=== PATIENT | male | born 1955 | race Caucasian/White ===

== ENCOUNTER 2021-01-10 09:52 | Emergency (ER) | payer OTHER, MEDICARE ==
[2021-01-10 10:10] VITALS: BP 154/79; PULSE 109
--- NOTE | 2021-01-10 10:24 | EDM.PDOC ---
ED HPI GENERAL MEDICAL PROBLEM - General Chief Complaint: Respiratory Problem Time Seen by Provider: 01/10/21 10:07 Source of Information: Reports: Patient, EMS History Limitations: Reports: No Limitations - History of Present Illness INITIAL COMMENTS - FREE TEXT/NARRATIVE: This 65 yo male patient was brought to the ED by [facility] due to increased shortness of breath and difficulties breathing. The patient reports his symptoms got worse last night at about 1900 and has continued to get worse throughout the night. EMS reports the patient was on 5 liters of oxygen while at home upon their arrival. The patient reports he is supposed to be on 4 lpm, but increased his oxygen due to increased symptoms. The patient took 2 Prednisone pills and a Lorazepam prior to EMS arrival. The patient reports he has noticed increased sinus drainage and a productive cough. The patient reports he has been spitting up clear fluids. The patient reports his symptoms started last night after he started to choke on one of his medications. 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 ) - Related Data Allergies Allergy/AdvReac Type Severity Reaction Status Date / Time Milk Containing Products Allergy Unknown Abdominal Verified 01/10/21 09:57 Cramps cats Allergy Unknown Edema Uncoded 01/10/21 09:57 hay fever Allergy Unknown Edema Uncoded 01/10/21 09:57 Home Meds: Home Meds Albuterol Sulfate HFA 2 puff INH QID PRN 01/13/14 [History] Amoxicillin/Clavulanate K 1 tab PO ASDIRECTED PRN 01/13/14 [History] Ascorbic Acid 500 mg PO DAILY 01/13/14 [History] Cetirizine HCl [All Day Allergy] 1 tab PO DAILY PRN 01/13/14 [History] Finasteride [Proscar] 1 tab PO DAILY 01/13/14 [History] Naphazoline HCl/Pheniramine 2 drop EYEBOTH TID PRN 01/13/14 [History] Olopatadine HCl 1 drop EYEBOTH DAILY 01/13/14 [History] Oxybutynin Chloride 1 tab PO TID PRN 01/13/14 [History] Polyethylene Glycol 3350 1 tsp PO DAILY PRN 01/13/14 [History] Sildenafil Citrate 100 mg PO ASDIRECTED PRN 01/13/14 [History] Simvastatin [Zocor] 0.5 tab PO BEDTIME 01/13/14 [History] Terazosin HCl [Terazosin] 1 cap PO BEDTIME 01/13/14 [History] Tiotropium 1 cap INH QAM 01/13/14 [History] Trospium Chloride 1 tab PO BID 01/13/14 [History] hydrOXYzine HCL [hydrOXYzine] 1 tab PO TID PRN 01/13/14 [History] Calcium Carbonate/Vitamin D3 [Calcium 250+D] 1 tab PO BID 01/17/15 [History] Cholecalciferol (Vitamin D3) [Vitamin D3] 1,000 units PO DAILY 01/17/15 [History] Multivitamin with Minerals [Multiple Vitamin] 1 tab PO DAILY 01/17/15 [History] bisacodyL [Dulcolax] 2 tab PO ASDIRECTED PRN 01/17/15 [History] guaiFENesin [Guaifenesin ER] 1 tab PO DAILY 01/17/15 [History] predniSONE [Prednisone] 5 mg PO DAILY 01/17/15 [History] predniSONE [Prednisone] 20 mg PO ASDIRECTED PRN 01/17/15 [History] Budesonide/Formoterol [Symbicort 160-4.5 MCG] 2 puff INH BID 02/26/15 [History] Hydrocortisone [Hydrocortisone 1% Crm] 1 applic TOP ASDIRECTED PRN 02/26/15 [History] Loratadine 10 mg PO DAILY 02/26/15 [History] Omeprazole 20 mg PO BID 02/26/15 [History] traMADol HCl [Ultram] 1 tab PO ASDIRECTED PRN 02/26/15 [History] Past Medical History HEENT History: Reports: Impaired Vision, Other (See Below) Other HEENT History: blind left eye. Respiratory History: Reports: COPD, Other (See Below) Other Respiratory History: enphazema Gastrointestinal History: Reports: GERD, Hemorrhoids Genitourinary History: Reports: Prostate Disorder Musculoskeletal History: Reports: Back Pain, Chronic, Fracture, Other (See Below) Other Musculoskeletal History: compression fr. 2 rods and 6 screws. Psychiatric History: Reports: Anxiety - Infectious Disease History Infectious Disease History: Reports: Chicken Pox, Influenza, Measles, Mumps - Past Surgical History Respiratory Surgical History: Reports: Other (See Below) Social & Family History - Living Situation & Occupation Living situation: Reports: with Family Occupation: Disabled ED ROS GENERAL - Review of Systems Review Of Systems: Comprehensive ROS is negative, except as noted in HPI. ED EXAM, GENERAL - Physical Exam Exam: See Below Exam Limited By: No Limitations General Appearance: Alert, WD/WN, Anxious, Moderate Distress Eye Exam: Bilateral Eye: EOMI, Normal Inspection, PERRL Ears: Normal External Exam, Normal Canal, Hearing Grossly Normal, Normal TMs Nose: Normal Inspection, Normal Mucosa, No Blood Throat/Mouth: Normal Inspection, Normal Lips, Normal Teeth, Normal Gums, Normal Oropharynx, Normal Voice, No Airway Compromise Head: Atraumatic, Normocephalic Neck: Normal Inspection, Supple, Non-Tender, Full Range of Motion Respiratory/Chest: No Respiratory Distress, Lungs Clear, Normal Breath Sounds, No Accessory Muscle Use, Chest Non-Tender Cardiovascular: Tachycardia GI/Abdominal: Normal Bowel Sounds, Soft, Non-Tender, No Organomegaly, No Distention, No Abnormal Bruit, No Mass (Male) Exam: Deferred Rectal (Males) Exam: Deferred Back Exam: Normal Inspection, Full Range of Motion, NT Extremities: Other (generalized tremmors) Neurological: Alert, Oriented, CN II-XII Intact, Normal Cognition Psychiatric: Anxious Skin Exam: Warm, Dry, Intact, Normal Color, No Rash Lymphatic: No Adenopathy #1 Interpretation EKG Date: 01/10/21 Time: 11:53 Rhythm: NSR Rate (Beats/Min): 99 [place]: Normal P-Wave: Present QRS: Normal ST-T: Normal QT: Normal Comparison: No Change Course - Vital Signs Last Recorded V/S: Last Vital Signs Temp 35.9 C L 01/10/21 09:57 Pulse 109 H 01/10/21 09:57 Resp 22 H 01/10/21 09:57 BP 154/79 H 01/10/21 09:57 Pulse Ox 95 01/10/21 09:57 - Orders/Labs/Meds Orders: Active Orders 24 hr Category Date Time Status EKG Documentation Completion [RC] STAT Care 01/10/21 09:53 Active CULTURE BLOOD [BC] Stat Lab 01/10/21 09:53 Ordered Labs: Laboratory Tests 01/10/21 01/10/21 01/10/21 Range/Units 10:09 10:09 10:09 WBC 7.4 (5.0-10.0) 10^3/uL RBC 4.78 (4.6-6.2) 10^6/uL Hgb 14.5 (14.0-18.0) g/dL Hct 44.3 (40.0-54.0) % MCV 92.7 (80-100) fL MCH 30.3 (27.0-34.0) pg MCHC 32.7 L (33.0-35.0) g/dL Plt Count 168 D (150-450) 10^3/uL Neut % (Auto) 83.5 H (42.2-75.2) % Lymph % (Auto) 7.3 L (20.5-50.1) % [place] % (Auto) 7.3 (2-8) % Eos % (Auto) 1.8 (1.0-3.0) % Baso % (Auto) 0.1 (0.0-1.0) % D-Dimer, Quantitative (0-400) ng/mL Sodium 139 (136-145) mmol/L Potassium 4.3 (3.5-5.1) mmol/L Chloride 100 (98-107) mmol/L Carbon Dioxide 33 H (21-32) mmol/L Anion Gap 10.3 (7-13) mEq/L BUN 17 (7-18) mg/dL Creatinine 0.86 (0.70-1.30) mg/dL Est Cr Clr Drug Dosing 94.20 mL/min Estimated GFR (MDRD) > 60 BUN/Creatinine Ratio 19.8 (No establ ref range) Glucose 129 H (70-99) mg/dL Lactic Acid 1.0 (0.4-2.0) mmol/L Calcium 9.6 (8.5-10.1) mg/dL Total Bilirubin 0.5 (0.2-1.0) mg/dL AST 23 (15-37) U/L ALT 31 (16-63) U/L Alkaline Phosphatase 73 (46-116) U/L Troponin I < 0.017 (0.000-0.056) ng/mL B-Natriuretic Peptide 7 (0-100) pg/ml Total Protein 8.2 (6.4-8.2) g/dL Albumin 3.9 (3.4-5.0) g/dL Globulin 4.3 Albumin/Globulin Ratio 0.9 / Range/Units 10:09 WBC (5.0-10.0) 10^3/uL RBC (4.6-6.2) 10^6/uL Hgb (14.0-18.0) g/dL Hct (40.0-54.0) % MCV (80-100) fL MCH (27.0-34.0) pg MCHC (33.0-35.0) g/dL Plt Count (150-450) 10^3/uL Neut % (Auto) (42.2-75.2) % Lymph % (Auto) (20.5-50.1) % [place] % (Auto) (2-8) % Eos % (Auto) (1.0-3.0) % Baso % (Auto) (0.0-1.0) % D-Dimer, Quantitative 627 H (0-400) ng/mL Sodium (136-145) mmol/L Potassium (3.5-5.1) mmol/L Chloride (98-107) mmol/L Carbon Dioxide (21-32) mmol/L Anion Gap (7-13) mEq/L BUN (7-18) mg/dL Creatinine (0.70-1.30) mg/dL Est Cr Clr Drug Dosing mL/min Estimated GFR (MDRD) BUN/Creatinine Ratio (No establ ref range) Glucose (70-99) mg/dL Lactic Acid (0.4-2.0) mmol/L Calcium (8.5-10.1) mg/dL Total Bilirubin (0.2-1.0) mg/dL AST (15-37) U/L ALT (16-63) U/L Alkaline Phosphatase (46-116) U/L Troponin I (0.000-0.056) ng/mL B-Natriuretic Peptide (0-100) pg/ml Total Protein (6.4-8.2) g/dL Albumin (3.4-5.0) g/dL Globulin Albumin/Globulin Ratio Meds: Medications Discontinued Medications Generic Name Dose Route Start Last Admin Trade Name Jaret PRN Reason Stop Dose Admin Ceftriaxone Sodium 1 gm/ 50 mls @ 100 mls/hr 01/10/21 11:10 01/10/21 11:51 Sodium Chloride IV 01/10/21 11:39 Infused ONETIME ONE Infusion Methylprednisolone Sodium Succinate 125 mg 01/10/21 11:10 01/10/21 11:18 Methylprednisolone Sodium Succinate 125 Mg/2 Ml Sdv IVPUSH 01/10/21 11:11 125 mg ONETIME ONE Administration Departure - Departure Time of Disposition: 11:58 Disposition: Home, Self-Care 01 Condition: Fair Clinical Impression: Acute exacerbation of chronic obstructive airways disease - Discharge Information *PRESCRIPTION DRUG MONITORING PROGRAM REVIEWED*: Not Applicable *COPY OF PRESCRIPTION DRUG MONITORING REPORT IN PATIENT [place]: Not Applicable Instructions: Chronic Obstructive Pulmonary Disease Exacerbation, [id number] Forms: ED Department Discharge Care Plan Goals: The patient and his daughter were advised of the examination, lab results and x- ray results during the visit. The patient was given an IV dose of Solumedrol and Rocephin while in the ED. The patient was discharged with a script for Prednisone (20 mg) #10 to take 2 by mouth daily for 5 days and Augmentin (500/125) #20 to take 1 by mouth 2 times per day for 10 days. The patient was encouraged to continue to monitor his symptoms. If the patient has any additional symptoms or concerns, the patient should either return to the emergency department or visit his primary care facility. Sepsis Event Note (ED) - Focused Exam Vital Signs: Vital Signs Temp Pulse Resp BP Pulse Ox 01/10/21 09:57 35.9 C L 109 H 22 H 154/79 H 95 - My Orders Last 24 Hours: My Active Orders 01/10/21 09:53 EKG Documentation Completion [RC] STAT CULTURE BLOOD [BC] Stat - Assessment/Plan Last 24 Hours: My Active Orders 01/10/21 09:53 EKG Documentation Completion [RC] STAT CULTURE BLOOD [BC] Stat
[2021-01-10 10:42] LABS: ANION GAP 10.3 mEq/L (7-13); CHLORIDE,CL 100 mmol/L (98-107); SODIUM,NA 139 mmol/L (136-145)
--- NOTE | 2021-01-10 11:00 | CR ---
EXAMINATION: Chest 1V Frontal SEX: Male AGE: 65 years CLINICAL HISTORY: 65-year-old male with history "COPD" and now short of breath. Comparison exam 31 August 2015. INTERPRETATION: No acute new evidence cardiovascular decompensation, lung mass or focal lobar consolidation (compared to August 2015). 1. Normal cardiac silhouette. Bilateral prominence of proximal pulmonary artery segments. No vascular congestion, cephalization of flow, alveolar edema or dependent new pleural fluid accumulation. 2. Generalized air trapping and chronic shaggy bronchitic pattern (interstitial fibrosis). 3. No new lung mass or hilar lymphadenopathy. 4. No atelectasis/infiltrate. No peripheral "groundglass" interstitial lung densities. 5. No pneumothorax or pneumomediastinum. CONCLUSION:
[2021-01-10] MEDS ORDERED: cefTRIAXone 1 GM in Sodium Chloride 0.9% 50 ML IV ONE (11:10)
[2021-01-10] MEDS ORDERED: methylPREDNISolone Sodium Succinate 125 MG/2 ML SDV IVPUSH ONE (11:10)
== END 2021-01-10 12:07 | disposition home or self-care (01) ==
LOC: DL.ED 09:52
DX: J44.1 Chronic obstructive pulmonary disease with (acute) exacerbation (principal); K21.9 Gastro-esophageal reflux disease without esophagitis; N42.9 Disorder of prostate, unspecified; Z91.011 Allergy to milk products; Z91.048 Other nonmedicinal substance allergy status; Z79.899 Other long term (current) drug therapy
CPT/HCPCS: 36415; 71045; 80053; 83605; 83880; 84484; 85025; 85379; 87040; 93005; 93010; 96365; 96375; 99284; 99285-25; J0696; J2930

== ENCOUNTER 2022-12-24 15:33 | Emergency (ER) | payer OTHER, MEDICARE ==
[2022-12-24 16:13] VITALS: BP 143/63; PULSE 106
== END 2022-12-24 16:32 ==
LOC: DL.ED 15:33
DX: T18.128A Food in esophagus causing other injury, initial encounter (principal); K21.9 Gastro-esophageal reflux disease without esophagitis; J43.9 Emphysema, unspecified; Z79.899 Other long term (current) drug therapy; Z91.011 Allergy to milk products; Z91.048 Other nonmedicinal substance allergy status
CPT/HCPCS: 99284; 99285

== ENCOUNTER 2023-05-07 20:01 | Emergency (ER) | payer MEDICARE, OTHER ==
[2023-05-07 20:30] VITALS: BP 134/68; PULSE 82
[2023-05-07 22:15] LABS: BASOPHILS PERCENT AUTO 0.2 % (0.0-1.0); EOSINOPHILS PERCENT AUTO 3.5 % (1.0-3.0); HEMATOCRIT 41.1 % (40.0-54.0); HEMOGLOBIN 13.2 g/dL (14.0-18.0); LYMPHOCYTES PERCENT AUTO 15.2 % (20.5-50.1); MEAN CORPUSCULAR HEMOGLOBIN 31.6 pg (27.0-34.0); MEAN CORPUSCULAR HGB CONC 32.1 g/dL (33.0-35.0); MEAN CORPUSCULAR VOLUME 98.3 fL (80-100); MONOCYTES PERCENT AUTO 9.4 % (2-8); NEUTROPHILS PERCENT AUTO 71.7 % (42.2-75.2); PLATELET COUNT,PLT 165 10^3/uL (150-450); RED BLOOD CELL COUNT 4.18 10^6/uL (4.6-6.2); WHITE BLOOD CELL COUNT,WBC 5.4 10^3/uL (5.0-10.0)
[2023-05-07 22:33] LABS: B-TYPE NATRIURETIC PEPTIDE,BNP 45 pg/ml (0-100)
[2023-05-07 22:34] LABS: INR 0.9 (0.9-1.2); PROTHROMBIN TIME 9.7 SEC (9.0-12.0); PTT,PARTIAL THROMBOPLSTIN TIME 25.2 SEC (22.0-34.0)
[2023-05-07 22:37] LABS: ALANINE AMINOTRANSFERASE,ALT 29 U/L (16-63); ALBUMIN 4.1 g/dL (3.4-5.0); ALKALINE PHOSPHATASE 70 U/L (46-116); AMYLASE 67 U/L (25-115); ANION GAP 9.6 mEq/L (7-13); ASPARTATE AMNIOTRANSFERASE,AST 25 U/L (15-37); BILIRUBIN TOTAL 0.4 mg/dL (0.2-1.0); BLOOD UREA NITROGEN,BUN 21 mg/dL (7-18); BUN/CREATININE RATIO 33.9 (No establ ref range); CALCIUM 9.7 mg/dL (8.5-10.1); CARBON DIOXIDE,CO2 38 mmol/L (21-32); CHLORIDE,CL 98 mmol/L (98-107); CREATININE 0.62 mg/dL (0.70-1.30); EST CRCL DRUG DOSING (CG) 104.32 mL/min; GLUCOSE RANDOM 91 mg/dL (70-99); LIPASE 55 U/L (73-393); MAGNESIUM 1.8 mg/dL (1.8-2.4); POTASSIUM,K 4.6 mmol/L (3.5-5.1); PROTEIN TOTAL,TP 8.1 g/dL (6.4-8.2); SODIUM,NA 141 mmol/L (136-145)
[2023-05-07 22:39] LABS: C-REACTIVE PROTEIN < 0.2 mg/dL (0.0-0.9); ESTIMATED GFR 103 mL/min (>=60)
[2023-05-07 22:40] LABS: LACTIC ACID 0.6 mmol/L (0.4-2.0)
[2023-05-07] MEDS ORDERED: Take Home: traMADol 50 MG, 4 Tab Pack PO ONE (22:46)
== END 2023-05-07 23:15 | disposition home or self-care (01) ==
LOC: DL.ED 20:01
DX: J44.9 Chronic obstructive pulmonary disease, unspecified (principal); R07.81 Pleurodynia; E78.00 Pure hypercholesterolemia, unspecified; K21.9 Gastro-esophageal reflux disease without esophagitis; Z87.891 Personal history of nicotine dependence; Z91.048 Other nonmedicinal substance allergy status; Z91.011 Allergy to milk products
CPT/HCPCS: 36415; 71101; 80053; 82150; 83605; 83690; 83735; 83880; 84145; 85025; 85610; 85730; 86140; 99283; 99284; A9270

== ENCOUNTER 2023-05-30 13:23 | Emergency (ER) | payer OTHER ==
[2023-05-30] MEDS ORDERED: Sodium Chloride 0.9% 10 ML Syringe FLUSH PRN (13:39)
[2023-05-30 13:55] LABS: BASOPHILS PERCENT AUTO 0.2 % (0.0-1.0); EOSINOPHILS PERCENT AUTO 1.4 % (1.0-3.0); HEMATOCRIT 38.8 % (40.0-54.0); HEMOGLOBIN 12.7 g/dL (14.0-18.0); LYMPHOCYTES PERCENT AUTO 10.4 % (20.5-50.1); MEAN CORPUSCULAR HEMOGLOBIN 31.8 pg (27.0-34.0); MEAN CORPUSCULAR HGB CONC 32.7 g/dL (33.0-35.0); MEAN CORPUSCULAR VOLUME 97.2 fL (80-100); PLATELET COUNT,PLT 156 10^3/uL (150-450); RED BLOOD CELL COUNT 3.99 10^6/uL (4.6-6.2)
[2023-05-30 14:14] VITALS: BP 106/82; PULSE 104
[2023-05-30 14:18] LABS: A/G RATIO 1.1; ALANINE AMINOTRANSFERASE,ALT 22 U/L (16-63); ALBUMIN 3.9 g/dL (3.4-5.0); ALKALINE PHOSPHATASE 67 U/L (46-116); ANION GAP 6.2 mEq/L (7-13); ASPARTATE AMNIOTRANSFERASE,AST 24 U/L (15-37); BILIRUBIN TOTAL 0.3 mg/dL (0.2-1.0); BLOOD UREA NITROGEN,BUN 18 mg/dL (7-18); CALCIUM 9.4 mg/dL (8.5-10.1); CARBON DIOXIDE,CO2 37 mmol/L (21-32); CHLORIDE,CL 99 mmol/L (98-107); CREATININE 0.62 mg/dL (0.70-1.30); EST CRCL DRUG DOSING (CG) 106.99 mL/min; GLUCOSE RANDOM 131 mg/dL (70-99); POTASSIUM,K 4.2 mmol/L (3.5-5.1); PROTEIN TOTAL,TP 7.3 g/dL (6.4-8.2); SODIUM,NA 138 mmol/L (136-145)
[2023-05-30 14:19] LABS: B-TYPE NATRIURETIC PEPTIDE,BNP 41 pg/ml (0-100); ESTIMATED GFR 103 mL/min (>=60)
[2023-05-30 14:26] LABS: INR 0.9 (0.9-1.2); PROTHROMBIN TIME 9.6 SEC (9.0-12.0); PTT,PARTIAL THROMBOPLSTIN TIME 25.9 SEC (22.0-34.0)
[2023-05-30] MEDS ORDERED: Iopamidol 755 Mg/ML 100 ML Bottle IVPUSH ONE (14:28)
[2023-05-30] MEDS ORDERED: Iopamidol 612 MG/ML 100 ML Bottle IVPUSH ONE (14:30)
[2023-05-30] MEDS ORDERED: Ketorolac 30 MG/ML SDV IVPUSH ONE (15:43)
[2023-05-30] MEDS ORDERED: Lidocaine 5% 700 MG Patch TOP ONE (15:45)
== END 2023-05-30 16:11 | disposition home or self-care (01) ==
LOC: DL.ED 13:23
DX: R07.81 Pleurodynia (principal); J44.9 Chronic obstructive pulmonary disease, unspecified; K21.9 Gastro-esophageal reflux disease without esophagitis; E78.00 Pure hypercholesterolemia, unspecified; Z87.891 Personal history of nicotine dependence; Z91.011 Allergy to milk products; Z79.899 Other long term (current) drug therapy
CPT/HCPCS: 36415; 71260; 74177; 80053; 83605; 83880; 84145; 84484; 85025; 85379; 85610; 85730; 86140; 87040; 93005; 93010; 96374; 99285; 99285-25; J1885; J3490; Q9967

== ENCOUNTER 2023-12-08 17:00 | Emergency (ER) | payer OTHER ==
[2023-12-08 17:26] LABS: HEMATOCRIT 36.6 % (40.0-54.0); HEMOGLOBIN 11.7 g/dL (14.0-18.0); LYMPHOCYTES PERCENT AUTO 4.7 % (20.5-50.1); MEAN CORPUSCULAR HEMOGLOBIN 31.7 pg (27.0-34.0); MEAN CORPUSCULAR VOLUME 99.2 fL (80-100); MONOCYTES PERCENT AUTO 6.4 % (2-8); NEUTROPHILS PERCENT AUTO 88.9 % (42.2-75.2); PLATELET COUNT,PLT 135 10^3/uL (150-450); RED BLOOD CELL COUNT 3.69 10^6/uL (4.6-6.2); WHITE BLOOD CELL COUNT,WBC 6.6 10^3/uL (5.0-10.0)
[2023-12-08 17:38] VITALS: BP 121/64; PULSE 100
[2023-12-08] MEDS: Ketorolac 30 MG/ML SDV IVPUSH ONE (17:47)
[2023-12-08 17:51] LABS: A/G RATIO 1.1; ALANINE AMINOTRANSFERASE,ALT 22 U/L (16-63); ALBUMIN 3.6 g/dL (3.4-5.0); ALKALINE PHOSPHATASE 63 U/L (46-116); ANION GAP 10.1 mEq/L (7-13); ASPARTATE AMNIOTRANSFERASE,AST 22 U/L (15-37); BILIRUBIN TOTAL 0.3 mg/dL (0.2-1.0); BLOOD UREA NITROGEN,BUN 26 mg/dL (7-18); BUN/CREATININE RATIO 34.7 (No establ ref range); CALCIUM 9.2 mg/dL (8.5-10.1); CARBON DIOXIDE,CO2 36 mmol/L (21-32); CHLORIDE,CL 100 mmol/L (98-107); CREATININE 0.75 mg/dL (0.70-1.30); GLUCOSE RANDOM 114 mg/dL (70-99); LIPASE 20 U/L (16-77); POTASSIUM,K 4.1 mmol/L (3.5-5.1); PROTEIN TOTAL,TP 6.9 g/dL (6.4-8.2); SODIUM,NA 142 mmol/L (136-145)
[2023-12-08 17:52] LABS: ESTIMATED GFR 97 mL/min (>=60)
[2023-12-08] MEDS: Iopamidol 612 MG/ML 100 ML Bottle IVPUSH ONE (19:32)
[2023-12-08] MEDS: Methylnaltrexone 12 MG/0.6 ML SDV SUBCUT ONE (21:51)
[2023-12-08 23:05] LABS: APPEARANCE,URINE CLEAR (CLEAR); BILIRUBIN,URINE NEGATIVE (NEGATIVE); COLOR,URINE YELLOW (YELLOW); GLUCOSE,URINE NEGATIVE (NEGATIVE); KETONES,URINE TRACE (NEGATIVE); LEUKOCYTE ESTERASE,URINE NEGATIVE (NEGATIVE); NITRITE,URINE NEGATIVE (NEGATIVE); OCCULT BLOOD,URINE MODERATE (NEGATIVE); PROTEIN,URINE NEGATIVE (NEGATIVE); UROBILINOGEN,URINE 0.2 mg/dL (0.2-1.0)
[2023-12-08 23:20] LABS: AMORPHOUS SEDIMENT,URINE FEW /HPF (NOT SEEN); BACTERIA,URINE RARE /HPF (0-FEW/HPF); EPITHELIAL CELLS,URINE RARE /HPF (NOT SEEN); MUCUS,URINE MODERATE /LPF (NOT SEEN)
[2023-12-08] MEDS: Magnesium Citrate Solution 296 ML Bottle PO ONE (23:32)
[2023-12-08] MEDS: Bisacodyl 10 MG Supp RECTAL ONE (23:33)
== END 2023-12-09 02:45 | disposition home or self-care (01) ==
LOC: DL.ED 17:00
DX: K59.00 Constipation, unspecified (principal); K21.9 Gastro-esophageal reflux disease without esophagitis; E78.00 Pure hypercholesterolemia, unspecified; Z91.048 Other nonmedicinal substance allergy status; Z91.011 Allergy to milk products; Z88.8 Allergy status to other drugs, medicaments and biological substances; Z79.899 Other long term (current) drug therapy
CPT/HCPCS: 36415; 71045; 74177; 80053; 81001; 83605; 83690; 85025; 96372; 96374; 99284; 99284-25; A9270-GY; J1885; J2212-GY; Q9967

== ENCOUNTER 2024-08-26 17:04 | Emergency (ER) | payer OTHER ==
[2024-08-26] MEDS: Iopamidol 612 MG/ML 100 ML Bottle IVPUSH ONE (17:12)
[2024-08-26 17:26] LABS: BASOPHILS PERCENT AUTO 0.4 % (0.0-1.0); EOSINOPHILS PERCENT AUTO 1.8 % (1.0-3.0); HEMATOCRIT 34.7 % (40.0-54.0); HEMOGLOBIN 10.7 g/dL (14.0-18.0); LYMPHOCYTES PERCENT AUTO 10.6 % (20.5-50.1); MEAN CORPUSCULAR HEMOGLOBIN 32.2 pg (27.0-34.0); MEAN CORPUSCULAR HGB CONC 30.8 g/dL (33.0-35.0); MEAN CORPUSCULAR VOLUME 104.5 fL (80-100); MONOCYTES PERCENT AUTO 8.4 % (2-8); NEUTROPHILS PERCENT AUTO 78.8 % (42.2-75.2); PLATELET COUNT,PLT 103 10^3/uL (150-450); RED BLOOD CELL COUNT 3.32 10^6/uL (4.6-6.2); WHITE BLOOD CELL COUNT,WBC 2.3 10^3/uL (5.0-10.0)
[2024-08-26 17:44] LABS: A/G RATIO 1.1; ALANINE AMINOTRANSFERASE,ALT 24 U/L (16-63); ALBUMIN 3.4 g/dL (3.4-5.0); ALKALINE PHOSPHATASE 68 U/L (46-116); ASPARTATE AMNIOTRANSFERASE,AST 19 U/L (15-37); BILIRUBIN TOTAL 0.2 mg/dL (0.2-1.0); BLOOD UREA NITROGEN,BUN 20 mg/dL (7-18); BUN/CREATININE RATIO 37.7 (No establ ref range); CALCIUM 8.6 mg/dL (8.5-10.1); CARBON DIOXIDE,CO2 43 mmol/L (21-32); CHLORIDE,CL 100 mmol/L (98-107); CREATININE 0.53 mg/dL (0.70-1.30); EST CRCL DRUG DOSING (CG) 104.84 mL/min; GLUCOSE RANDOM 146 mg/dL (70-99); MAGNESIUM 1.8 mg/dL (1.8-2.4); PROTEIN TOTAL,TP 6.6 g/dL (6.4-8.2); SODIUM,NA 141 mmol/L (136-145)
[2024-08-26 17:48] LABS: ESTIMATED GFR 108 mL/min (>=60); ETHANOL BLOOD MEDICAL < 3 mg/dL (0)
[2024-08-26] MEDS: Sodium Chloride 0.9% 1,000 ML IV ONE ×2 (18:56→19:22)
[2024-08-26] MEDS: LORazepam 0.5 MG Tab PO ONE (19:25)
[2024-08-26 20:05] VITALS: BP 98/57; PULSE 80
[2024-08-26] MEDS ORDERED: Naloxone 2 MG/2 ML Syringe IVPUSH PRN (20:13)
[2024-08-26] MEDS: Ketorolac 30 MG/ML SDV IVPUSH ONE (20:29)
[2024-08-26] MEDS: Morphine 2 MG/ML SYRINGE IVPUSH ONE (20:29)
[2024-08-26 21:04] LABS: APPEARANCE,URINE CLEAR (CLEAR); BILIRUBIN,URINE NEGATIVE (NEGATIVE); COLOR,URINE YELLOW (YELLOW); GLUCOSE,URINE NEGATIVE (NEGATIVE); KETONES,URINE NEGATIVE (NEGATIVE); LEUKOCYTE ESTERASE,URINE NEGATIVE (NEGATIVE); NITRITE,URINE NEGATIVE (NEGATIVE); OCCULT BLOOD,URINE TRACE-INTACT (NEGATIVE); PH,URINE 6.5 (5.0-9.0); PROTEIN,URINE TRACE (NEGATIVE); UROBILINOGEN,URINE 0.2 mg/dL (0.2-1.0)
[2024-08-26 21:14] LABS: WBC,URINE 0-5 /HPF (0-5/HPF)
[2024-08-26 21:15] LABS: AMORPHOUS SEDIMENT,URINE FEW /HPF (NOT SEEN); BACTERIA,URINE FEW /HPF (0-FEW/HPF); CALCIUM OXALATE CRYSTALS,URINE RARE /HPF (NOT SEEN); EPITHELIAL CELLS,URINE FEW /HPF (NOT SEEN); HYALINE CASTS,URINE RARE; MUCUS,URINE FEW /LPF (NOT SEEN); RBC,URINE 20-30 /HPF (0-5)
== END 2024-08-26 21:10 ==
LOC: DL.ED 17:04
DX: S72.001A Fracture of unspecified part of neck of right femur, initial encounter for closed fracture (principal); E86.0 Dehydration; D61.818 Other pancytopenia; J44.9 Chronic obstructive pulmonary disease, unspecified; K21.9 Gastro-esophageal reflux disease without esophagitis; Z90.89 Acquired absence of other organs; Z87.891 Personal history of nicotine dependence; Z91.011 Allergy to milk products; Z91.048 Other nonmedicinal substance allergy status; Z79.52 Long term (current) use of systemic steroids; Z79.899 Other long term (current) drug therapy; W18.30XA Fall on same level, unspecified, initial encounter; Y92.019 Unspecified place in single-family (private) house as the place of occurrence of the external cause; Y93.01 Activity, walking, marching and hiking
CPT/HCPCS: 36415; 51702; 70450; 71260; 72125; 73552; 74177; 80053; 80307; 81001; 82947; 83735; 84484; 85025; 85610; 93005; 96361; 96374; 96375; 99285; A9270; J1885; J2270; J7030; Q9967